=== PATIENT | female | born 1980 | race Caucasian/White ===

== ENCOUNTER 2019-07-28 09:07 | Day surgery (SDC) | payer SELFPAY ==
[~2019-07-28] VITALS: Ht 154.9 cm; Wt 59.4 kg
[2019-07-28 10:25] VITALS: BP 103/66; PULSE 75; TEMP 97.9
[2019-07-28 14:40] VITALS: BP 110/73; PULSE 71; TEMP 97.7
--- NOTE | 2019-07-28 14:40 | NUR ---
Patient brought back to [facility] via cart from PACU. Placed on monitors, vital signs stable. IV non functioning at this time. States pain is 7/10 to left breast. Bandage to lower breast clean dry and intact. Family at bedside. Call dhillon within reach, all safety maintained.
[2019-07-28 14:45] VITALS: BP 107/64; PULSE 69
[2019-07-28 15:00] VITALS: BP 106/69; PULSE 65
--- NOTE | 2019-07-28 15:00 | NUR ---
Patient given pain medication per [employer] [facility]. Ambulated to bathroom without difficulty. Was able to urinate. Pt tolerating water and jello without difficulty. IV removed to left wrist. Will conitnue to [facility].
[2019-07-28 15:15] VITALS: BP 109/61; PULSE 65
--- NOTE | 2019-07-28 15:30 | NUR ---
Patient states he pain is 1/10 to left breast. States shes ready to go home. Discharge instructions given to patient and family. All questions answered. Pt to get dressed at this time.
--- NOTE | 2019-07-28 15:45 | NUR ---
Patient brought down to lobby via wheel chair. To be driven home by mother.
[2019-07-28 16:03] VITALS: BP 110/73; PULSE 70; TEMP 97.7
== END 2019-07-28 15:45 | disposition home or self-care (01) ==
LOC: SDCO 09:07
DX: T85.898A Other specified complication of other internal prosthetic devices, implants and grafts, initial encounter (principal); Z85.3 Personal history of malignant neoplasm of breast
CPT/HCPCS: J1100; J2405; J2704; J3010